=== PATIENT | male | born 1975 | race Caucasian/White ===

== ENCOUNTER 2016-06-13 08:17 | Emergency (ER) | payer OTHER ==
[2016-06-13 08:26] VITALS: BP 125/75; PULSE 59; TEMP 97.6; BMI 29.0
--- NOTE | 2016-06-13 08:54 | PDOC ---
History of Present Illness - General Chief Complaint: Back Pain Stated Complaint: BACK PAIN Time Seen by Provider: 06/13/16 08:39 History Source: Patient Exam Limitations: No Limitations - History of Present Illness Initial Comments: 06/13/16 09:14 Patient came to emergency department for evaluation of right flank and back pain. States was at the gym a couple days ago and performed sit ups with 10 pound weights and thinks may have strained his back. Denies numbness or tingling to hands or feet, denies fever, denies any nausea vomiting diarrhea or constipation. No urine problems. 06/13/16 09:19 06/13/16 09:26 Occurred: reports: other (2 days ago) Severity: reports: mild, moderate Pain Location: reports: back, chest Modifying Factors: improves with: cold therapy, pain medication Loss of Consciousness: no loss of consciousness Associated Symptoms (Fall): denies symptoms Past History - Travel Traveled outside of the country in the last 30 days: No Close contact w/someone who was outside of country & ill: No - Past Medical History Allergies/Adverse Reactions: Allergies Allergy/AdvReac Type Severity Reaction Status Date / Time No Known Allergies Allergy Verified 06/13/16 08:27 Home Medications: Ambulatory Orders Cyclobenzaprine HCl 7.5 mg PO Q8H PRN #14 tablet 06/13/16 Other medical history: PT DENIES MEDICAL HX - Psycho/Social/Smoking Cessation Hx Suicidal Ideation: No Smoking History: Never smoked Hx Alcohol Use: No Drug/Substance Use Hx: No Review of Systems - Review of Systems Able to Perform ROS?: Yes Is the patient limited Dominican proficient: Yes Constitutional: Yes: Symptoms Reported, See HPI, Malaise. No: Chills, Fever HEENTM: Yes: See HPI. No: Symptoms Reported Respiratory: Yes: See HPI. No: Symptoms reported, Cough, Orthopnea, Shortness of Breath ABD/GI: Yes: See HPI. No: Symptoms Reported : Yes: See HPI. No: Symptoms Reported, Burning, Dysuria, Discharge Musculoskeletal: Yes: Symptoms Reported, See HPI, Muscle Pain, Muscle Weakness Integumentary: Yes: See HPI. No: Symptoms Reported Neurological: Yes: Symptoms reported All Other Systems: Reviewed and Negative *Physical Exam - Vital Signs Last Vital Signs Temp Pulse Resp BP Pulse Ox 97.6 F 59 L 18 125/75 100 06/13/16 08:23 06/13/16 08:23 06/13/16 08:23 06/13/16 08:23 06/13/16 08:23 - Physical Exam General Appearance: Yes: Nourished, Appropriately Dressed, Apparent Distress HEENT: positive: Normal ENT Inspection, TMs Normal, Pharynx Normal Neck: positive: Supple. negative: Tender, Lymphadenopathy (R), Lymphadenopathy (L) Respiratory/Chest: positive: Chest Tender, Lungs Clear, Normal Breath Sounds Cardiovascular: positive: Regular Rhythm Gastrointestinal/Abdominal: positive: Soft. negative: Tender Musculoskeletal: positive: Normal Inspection, Muscle Spasm (palpable spasm detected to the right thoracic spinous muscles at mid axillary line and lower trapezius and upper rhomboids. Spasm palpated with movement and flexion at waist. No crepitus or step-offs, no rash or lesions, no bone tenderness) Extremity: positive: Normal Capillary Refill, Normal Inspection, Normal Range of Motion Integumentary: positive: Normal Color, Dry, Warm Neurologic: positive: python django developer II-XII NML intact, Fully Oriented, Alert, Normal Mood/ Affect, Normal Response, Motor Strength 5/5 Progress Note - Progress Note Progress Note: Muscle strain thorax, will treat with NSAIDs and cyclobenzaprine *DC/Admit/Observation/Transfer Diagnosis at time of Disposition: Muscle strain of chest wall Qualifiers: Encounter type: initial encounter Qualified Code(s): S29.011A - Strain of muscle and tendon of front wall of thorax, initial encounter - Discharge Dispostion Disposition: HOME Condition at time of disposition: Stable Admit: No - Patient Instructions Printed Discharge Instructions: DI for Muscle Strain Additional Instructions: Rest, no heavy lifting or exercise until pain is resolved Hot soaks to neck and low back as often as possible/hot showers or Jacuzzis No massage or therapy until spasm is gone Continue ibuprofen 2-200 mg tablets every 6 hours for the next 3 days then as needed for pain and swelling Cyclobenzaprine 1-10mg every 8 hours as needed for spasm If not significant improvement within 24 hours with medication and rest regime, followup with private physician for change in medications and /or therapy. - Post Discharge Activity Work/School Note: Back to Work
== END 2016-06-13 09:20 | disposition home or self-care (01) ==
LOC: JERFT 08:17
DX: S29.011A Strain of muscle and tendon of front wall of thorax, initial encounter (principal); X50.0XXA Overexertion from strenuous movement or load, initial encounter; Y93.B2 Activity, push-ups, pull-ups, sit-ups; Y92.39 Other specified sports and athletic area as the place of occurrence of the external cause; Y99.8 Other external cause status
CPT/HCPCS: 99281-25

== ENCOUNTER 2016-10-14 20:08 | Emergency (ER) | payer OTHER ==
[2016-10-14 20:17] VITALS: BP 139/85; PULSE 77; TEMP 98.5; BMI 29.7
[2016-10-14] MEDS ORDERED: ASPIRIN 81 MG CHEWABLE TABLETS PO ONE (20:56)
--- NOTE | 2016-10-14 20:56 | PDOC ---
History of Present Illness - General History Source: Patient, Old Records Exam Limitations: No Limitations <Jose L Wong - Last Filed: 10/14/16 22:05> <Luciana Caruso - Last Filed: 10/15/16 02:06> - General Chief Complaint: Chest Pain Stated Complaint: CHEST PAIN/LEFT ARM NUMBNESS Time Seen by Provider: 10/14/16 20:51 - History of Present Illness Initial Comments: 10/14/16 20:57 The patient is a 41 year old male with no significant past medical history, who presents to the emergency department today for further evaluation of left sided chest pain for 2 days. The patient describes his pain as sharp and radiating to his left upper extremity. He reports associated left upper extremity numbness and intermittent shortness of breath. The patient cites increased stress lately. The patient denies fever, chills, and sweats. The patient denies nausea, vomiting, and diarrhea. The patient denies cough, and shortness of breath. FAMILY HISTORY: No family history of CAD reported SOCIAL HISTORY: Denies history of smoking. (Jose L Wong) Past History <Jose L Wong - Last Filed: 10/14/16 22:05> - Past Medical History Other medical history: Anxiety - Immunization History Immunization Up to Date: No - Psycho/Social/Smoking Cessation Hx Anxiety: No Suicidal Ideation: No Smoking History: Never smoked Have you smoked in the past 12 months: No Information on smoking cessation initiated: No Hx Alcohol Use: No Drug/Substance Use Hx: No Substance Use Type: None <Luciana Caruso - Last Filed: 10/15/16 02:06> - Past Medical History Allergies/Adverse Reactions: Allergies Allergy/AdvReac Type Severity Reaction Status Date / Time No Known Allergies Allergy Verified 10/14/16 20:17 Home Medications: Ambulatory Orders Fluoxetine HCl [Prozac] 20 mg PO DAILY 10/14/16 Review of Systems - Review of Systems Able to Perform ROS?: Yes <Jose L Wong - Last Filed: 10/14/16 22:05> <Luciana Caruso - Last Filed: 10/15/16 02:06> - Review of Systems Comments:: 10/14/16 20:57 GENERAL/CONSTITUTIONAL: No fever or chills. No weakness. HEAD, EYES, EARS, NOSE AND THROAT: No change in vision. No ear pain or discharge. No sore throat. GASTROINTESTINAL: No nausea, vomiting, diarrhea or constipation. GENITOURINARY: No dysuria, frequency, or change in urination. CARDIOVASCULAR: Yes chest pain, shortness of breath. RESPIRATORY: No cough, wheezing, or hemoptysis. MUSCULOSKELETAL: No joint or muscle swelling or pain. No neck or back pain. SKIN: No rash NEUROLOGIC: No headache, vertigo, loss of consciousness, or change in strength/ sensation. ENDOCRINE: No increased thirst. No abnormal weight change. HEMATOLOGIC/LYMPHATIC: No anemia, easy bleeding, or history of blood clots. ALLERGIC/IMMUNOLOGIC: No hives or skin allergy. (Jose L Wong) *Physical Exam <Jose L Wong - Last Filed: 10/14/16 22:05> <Luciana Caruso - Last Filed: 10/15/16 02:06> - Vital Signs Last Vital Signs Temp Pulse Resp BP Pulse Ox 98.5 F 77 19 139/85 99 10/14/16 20:13 10/14/16 20:13 10/14/16 20:13 10/14/16 20:13 10/14/16 20:13 - Physical Exam Comments: 10/14/16 20:57 GENERAL: Awake, alert, and fully oriented, in no acute distress HEAD: No signs of trauma EYES: PERRLA, EOMI, sclera anicteric, conjunctiva clear ENT: Auricles normal inspection, nares patent, Moist mucosa NECK: Normal ROM, supple, no lymphadenopathy, JVD, or masses LUNGS: Breath sounds equal, clear to auscultation bilaterally. No wheezes, and no crackles HEART: Regular rate and rhythm, normal S1 and S2, no murmurs, rubs or gallops ABDOMEN: Soft, nontender, normoactive bowel sounds. No guarding, no rebound. No masses EXTREMITIES: Normal range of motion, no edema. No clubbing or cyanosis. No cords, erythema, or tenderness NEUROLOGICAL: Normal speech SKIN: Warm, Dry, normal turgor, no rashes or lesions noted. (Jose L Wong) ED Treatment Course - LABORATORY CBC & Chemistry Diagram: 10/14/16 21:15 10/14/16 21:15 <Jose L Wong - Last Filed: 10/14/16 22:05> - LABORATORY CBC & Chemistry Diagram: 10/14/16 21:15 10/14/16 21:15 <ZulyLuciana - Last Filed: 10/15/16 02:06> - ADDITIONAL ORDERS Additional order review: Laboratory Results 10/15/16 10/15/16 10/14/16 01:10 01:10 21:15 D-Dimer Sodium Potassium Chloride Carbon Dioxide Anion Gap BUN Creatinine Creat Clearance w eGFR Random Glucose Calcium Total Bilirubin AST ALT Alkaline Phosphatase Creatine Kinase 201 Creatine Kinase Index CK-MB (CK-2) CK-MB (CK-2) Rel Index Cancelled Cancelled Troponin I < 0.02 Total Protein Albumin 10/14/16 10/14/16 10/14/16 21:15 21:15 21:15 D-Dimer < 200 Sodium 140 Potassium 4.5 Chloride 106 Carbon Dioxide 29 Anion Gap 5 L BUN 10 Creatinine 0.9 Creat Clearance w eGFR > 60 Random Glucose 89 Calcium 8.9 Total Bilirubin 0.2 AST 28 ALT 52 Alkaline Phosphatase 88 Creatine Kinase 216 Creatine Kinase Index Y CK-MB (CK-2) < 1.000 CK-MB (CK-2) Rel Index Troponin I < 0.02 Total Protein 7.5 Albumin 4.0 10/14/16 21:15 RBC 4.87 MCV 87.9 MCHC 32.6 RDW 13.5 MPV 8.2 Neutrophils % 50.9 Lymphocytes % 40.1 H Monocytes % 7.5 Eosinophils % 1.2 Basophils % 0.3 - RADIOLOGY Radiology Studies Ordered: Category Date Time Status CHEST PA & LAT [RAD] Stat Radiology 10/14/16 20:56 Completed Radiograph Interpretation: 10/14/16 22:05 EXAM#: TYPE/EXAM: RESULT: [id number] RAD/CHEST PA LAT HISTORY PROVIDED: Chest pain . PA and lateral projections of the chest are submitted. The heart size is within normal limits. The lung becerra are free of pulmonary infiltrates or pleural effusions. IMPRESSION: Normal chest. Reported By: Lan Alejandro MD 10/14/16 [id number] (Jose L Wong) - Medications Given in the ED: ED Medications Discontinued Medications Generic Name Dose Route Start Last Admin Trade Name Freq PRN Reason Stop Dose Admin Aspirin 162 mg 10/14/16 20:56 10/14/16 21:21 Asa - PO 10/14/16 20:57 162 mg ONCE ONE Administration Medical Decision Making <Jose L Wong - Last Filed: 10/14/16 22:05> <Luciana Caruso - Last Filed: 10/15/16 02:06> - Medical Decision Making 10/14/16 20:51 41 yo M with h/o anxiety, recently started on Prozac by his pcp here with c/o chest pain. radiating down his left arm. describes as a sharp pain. radiating to left arm. also had lue numbness. has noted recent leg swelling and had ultrasound which was negative for DVT, since resolved. not pleuritic. no h;/o dvt or pe. no recent travel. no cough no f/c . father with h/o htn, no family h/ o CAD. pt does not smoke. he is very active runs 5 mi / day, never had chest pain while running. hasn't run in a week. does also occasionally feel sob. pt has been under recent stress, and pcp attributed pain to anxiety hence the prozac. has outpt sched with cardiology in 2 weeks. on exam pt awak alert chest lungs clear.heart Regular. abd soft nt no pulsatile mass. skin warm and dry. ext no edema. pulses symmetric. nuero alert oriented x 3. sensation intact throughout. differential PE, infection such as pna ( unlikely) acs. plan labs asa ekg cxr d dimer. recommend repeat at 4 hours. pt low risk, if negative at 4 hours eduardo kendall outpt cardiology fu. (Luciana Caruso) *DC/Admit/Observation/Transfer <Jose L Wong - Last Filed: 10/14/16 22:05> - Discharge Dispostion Admit: No <Luciana Caruso - Last Filed: 10/15/16 02:06> Diagnosis at time of Disposition: Chest pain - Discharge Dispostion Disposition: HOME Condition at time of disposition: Fair - Referrals Referrals: STAFF,NOT ON [Primary Care Provider] - Darell Navas MD [Staff Physician] - - Patient Instructions Printed Discharge Instructions: DI for Atypical Chest Pain Additional Instructions: follow up with your regular doctor. you should follow up with cardiology as scheduled. you can also call DR Navas our [facility] to set up followup. return for any problems or concerns. - Attestations Scribe Attestion: 10/14/16 20:57 Documentation prepared by Jose L Wong, acting as medical assisting instructor for Luciana Caruso MD. (Jose L Wong)
[2016-10-14] MEDS ORDERED: ASPIRIN 81 MG CHEWABLE TABLETS ONE (21:09)
[2016-10-14 21:33] LABS: BASOPHIL 0.3 % (0-2.0); EOSINOPHIL 1.2 % (0-4.5); MCH 28.6 pg (25.7-33.7); MCHC 32.6 g/dl (32.0-35.9); MEAN CELL VOLUME 87.9 fl (80-96); MEAN PLT VOLUME 8.2 fl (7.5-11.1); NEUTROPHILS 50.9 % (42.8-82.8); PLATELET COUNT 216 K/MM3 (134-434); RDW 13.5 % (11.9-15.9); WHITE BLOOD COUNT 7.2 K/mm3 (4.0-10.0)
[2016-10-14 22:35] LABS: ANION GAP 5 (8-16); BILIRUBIN,TOTAL 0.2 mg/dL (0.2-1.0); CALCIUM 8.9 mg/dL (8.5-10.1); CO2 29 mmol/L (21-32); CREATININE 0.9 mg/dL (0.7-1.3); GLUCOSE,RANDOM 89 mg/dL (74-106); SGOT/AST 28 U/L (15-37); SGPT/ALT 52 U/L (12-78); TOT PROT 7.5 g/dl (6.4-8.2)
[2016-10-14 22:36] LABS: ALK PHOS 88 U/L (45-117)
[2016-10-14 22:38] LABS: TROPONIN I < 0.02 ng/ml (0.00-0.05)
[2016-10-15 01:47] LABS: TROPONIN I < 0.02 ng/ml (0.00-0.05)
--- NOTE | 2016-10-20 11:20 | EKG ---
Test Reason : Blood Pressure : / mmHG Vent. Rate : 062 BPM Atrial Rate : 062 BPM P-R Int : 174 ms QRS Dur : 094 ms QT Int : 400 ms P-R-T Axes : 063 -19 018 degrees QTc Int : 406 ms POOR DATA QUALITY, INTERPRETATION MAY BE ADVERSELY AFFECTED NORMAL SINUS RHYTHM NORMAL ECG NO PREVIOUS ECGS AVAILABLE Confirmed by YINA SAXENA MD ([id number]) on 10/20/2016 11:20:04 AM Referred By: Confirmed By:YINA SAXENA MD
== END 2016-10-15 02:48 | disposition home or self-care (01) ==
LOC: JER 20:08 → SUPCPDRO 20:08 → JER 10-15 02:48
DX: R07.89 Other chest pain (principal)
CPT/HCPCS: 36415; 71020-TC; 80053; 82550; 82553; 84484; 85025; 85379; 93005; 93010; 99283-25